=== PATIENT | male | born 1970 | race Caucasian/White ===

== ENCOUNTER → 2020-08-04 | Outpatient (CLI) | payer MEDICARE, SELFPAY ==
[~2020-08-04] MED LIST: ALDACTONE25 MG PO; CARVEDILOL25 MG PO; ECOTRIN81 MG PO; GLUCOPHAGE1000 MG PO; ISOSORBIDE DINI30 MG PO; LASIX40 MG PO; LIPITOR80 MG PO; LISINOPRIL10 MG PO; NITROSTAT 0.40.4 MG SL; POTASSIUM CHLO20 ME2 PO; XARELTO20 MG PO
== END ==
LOC: HEART 5 07:35
DX: I20.9 Angina pectoris, unspecified (principal); R94.39 Abnormal result of other cardiovascular function study
CPT/HCPCS: 78452; A9502; J2785

== ENCOUNTER → 2020-08-15 | Outpatient (CLI) | payer MEDICARE, SELFPAY ==
[2020-08-15 13:10] LABS: HEMOGLOBIN 15.2 gm/dl (14.0-17.5); RED BLOOD COUNT 5.02 M/UL (4.20-5.50); WHITE BLOOD COUNT 9.8 K/UL (4.5-11.0)
[2020-08-15 13:28] LABS: BUN/CREATININE RATIO 29 (0-10)
== END ==
LOC: LAB 11:54
PROVIDERS: Internal Medicine Cardiovascular Disease
DX: I25.119 Atherosclerotic heart disease of native coronary artery with unspecified angina pectoris (principal); I11.0 Hypertensive heart disease with heart failure; I50.22 Chronic systolic (congestive) heart failure; R94.39 Abnormal result of other cardiovascular function study; Z20.822 Contact with and (suspected) exposure to COVID-19
CPT/HCPCS: 36415; 71046; 80048; 85025; U0003

== ENCOUNTER → 2020-08-19 | Outpatient (CLI) | payer MEDICARE, SELFPAY | LOC: CATH 07:42 | DX: I25.118 Atherosclerotic heart disease of native coronary artery with other forms of angina pectoris (principal); I25.728 Atherosclerosis of autologous artery coronary artery bypass graft(s) with other forms of angina pectoris; I25.84 Coronary atherosclerosis due to calcified coronary lesion; I11.0 Hypertensive heart disease with heart failure; I50.22 Chronic systolic (congestive) heart failure; I25.5 Ischemic cardiomyopathy; I51.3 Intracardiac thrombosis, not elsewhere classified; E11.9 Type 2 diabetes mellitus without complications; E78.5 Hyperlipidemia, unspecified; G47.33 Obstructive sleep apnea (adult) (pediatric); I25.2 Old myocardial infarction; Z79.82 Long term (current) use of aspirin; Z95.1 Presence of aortocoronary bypass graft; Z95.810 Presence of automatic (implantable) cardiac defibrillator; Z79.84 Long term (current) use of oral hypoglycemic drugs; Z79.899 Other long term (current) drug therapy; Z82.49 Family history of ischemic heart disease and other diseases of the circulatory system | CPT/HCPCS: 82962; 99152; 99153; C1769; J1644; J2250; J7030; Q9967 ==

== ENCOUNTER → 2020-10-08 | Outpatient (CLI) | payer MEDICARE | LOC: HEART 5 09:30 | DX: Z79.899 Other long term (current) drug therapy (principal) | CPT/HCPCS: 94060; 94729 ==

== ENCOUNTER → 2021-10-08 | Outpatient (CLI) | payer MEDICARE | LOC: HEART 5 15:30 | DX: I50.22 Chronic systolic (congestive) heart failure (principal); R06.02 Shortness of breath; Z79.899 Other long term (current) drug therapy | CPT/HCPCS: 94060; 94729 ==